=== PATIENT | female | born 1975 | race African-American/Black ===

== ENCOUNTER 2016-07-06 13:19 | Emergency (ER) | payer OTHER ==
[~2016-07-06] VITALS: Ht 167.6 cm; Wt 84.9 kg
[~2016-07-06 13:19] MED LIST: AMOXICILLIN875 MG PO; CENTRUM ULTRA1 EAC1 PO; ENDOCET 5-3251 EACH PO; FLEXERIL5 MG PO; Motrin PO; NEXPLANON68 MG SC; NORCO 5/3251 TABLET PO; RANITIDINE HCL150 MG; ROBAXIN750 MG PO; SPRINTEC1 EACH; TOPAMAX100 MG PO; TYLENOL WITH C1 EACH PO
[2016-07-06 14:52] LABS: HEMATOCRIT 35.5 % (36.0-46.0); MCH 29.8 PG (29.0-34.0); MCV 90.3 FL (83-99); MEAN PLAT.VOLUME 9.5 uM^3 (9.5-12.4); PLATELET COUNT 274 K/uL (156-360); RBC DIS.WIDTH-CV 13.5 % (11.8-14.6); RBC DIS.WIDTH-SD 43.9 % (39-53); RED BLOOD COUNT 3.93 M/uL (3.80-5.20); WHITE BLOOD COUNT 6.2 K/uL (4.1-10.2)
[2016-07-06 15:00] LABS: CHLORIDE 112 mEq/L (99-109); POTASSIUM 3.8 mEq/L (3.7-5.4); SODIUM 140 mEq/L (136-147)
[2016-07-06 15:02] LABS: D-DIMER ELISA 0.37 mg/L FEU (< 0.57); GLUCOSE 96 mg/dL (70-99)
[2016-07-06 15:03] LABS: ANION GAP 7 MEQ/L (2-14)
[2016-07-06 15:06] LABS: GFR ESTIMATE (CALCULATED) > 59 mL/min/
[2016-07-06 15:07] LABS: UREA NITROGEN (BUN) 15 mg/dL (9-23)
[2016-07-06 15:12] LABS: TROP-I INTERPRETATION NEGATIVE; TROPONIN-I < 0.01 ng/mL (0.0-0.30)
[2016-07-06] MEDS ORDERED: WOMEN'S DAILY1 EAC4 PO (15:27)
[2016-07-06] MEDS ORDERED: muscle relaxer (15:28)
[2016-07-06] MEDS ORDERED: PERCOCET 5/31 TABLET PO (15:55)
[2016-07-06 16:34] VITALS: BP 107/72
== END 2016-07-06 16:34 | disposition home or self-care (01) ==
LOC: EME 13:19
PROVIDERS: Emergency Medicine
DX: R07.9 Chest pain, unspecified (principal); R20.2 Paresthesia of skin; Z73.3 Stress, not elsewhere classified; F17.200 Nicotine dependence, unspecified, uncomplicated
CPT/HCPCS: 71020; 80048; 84484; 85027; 85379; 93005; 99281; 99284

== ENCOUNTER 2017-09-19 07:11 | Emergency (ER) | payer OTHER ==
[~2017-09-19] VITALS: Ht 167.6 cm; Wt 85.1 kg
[~2017-09-19 07:11] MED LIST changes: +PERCOCET 5/31 TABLET PO; +WOMEN'S DAILY1 EAC4 PO; +muscle relaxer
[2017-09-19] MEDS ORDERED: NORCO 5/3251 TABLET PO (07:36)
[2017-09-19] MEDS ORDERED: PEN-VEE K,VEET500 MG PO (07:36)
[2017-09-19 07:44] VITALS: BP 127/61
== END 2017-09-19 07:45 | disposition home or self-care (01) ==
LOC: EME 07:11
PROC: 3E0T3BZ Introduction of Anesthetic Agent into Peripheral Nerves and Plexi, Percutaneous Approach (ICD-10-PCS; principal; 2017-09-19)
DX: K03.81 Cracked tooth (principal); K08.89 Other specified disorders of teeth and supporting structures
CPT/HCPCS: 99281; 99283